=== PATIENT | male | born 1965 | race Two or more races ===

== ENCOUNTER 2019-03-20 09:49 | Inpatient (IN) | payer SELFPAY ==
[~2019-03-20] VITALS: Ht 160 cm; Wt 77.4 kg
--- NOTE | 2019-03-20 10:00 | NUR ---
ED Nurse Note: Patient brought in by ambulance from work c/o left upper chest pressure pain that started 1 hour prior to the arrival to ED. patient received 2 0.4 sublinguqal nitrogylcerin and 324 mg of aspirin en route, now patient reports 2/10 pain, does not radiate to anywhere patient is alert awake x4 ambulatory, breathing unlabored and even, speaking in full sentences. patient assisted into hospital gown, placed on a caridac monitor.
[2019-03-20 10:05] VITALS: BP 154/85
[2019-03-20 10:17] LABS: BASOPHILS % (AUTO) 1.4 % (0.0-2.0); EOSINOPHILS % (AUTO) 2.2 % (0.0-3.0); LYMPHOCYTES % (AUTO) 26.7 % (20.0-45.0); MEAN CORPUSCULAR VOLUME 90 FL (80-99); MONOCYTES % (AUTO) 5.7 % (1.0-10.0); NEUTROPHILS % (AUTO) 63.9 % (45.0-75.0); PLATELET COUNT 266 K/UL (150-450); RED BLOOD COUNT 3.88 M/UL (4.70-6.10); RED CELL DISTRIBUTION WIDTH 11.5 % (11.6-14.8); WHITE BLOOD COUNT 8.5 K/UL (4.8-10.8)
[2019-03-20] MEDS ORDERED: Morphine Sulfate 4mg/ml Inj (IV USE ONLY) IVP ONE (10:30)
--- NOTE | 2019-03-20 10:34 | Diagnostic Imaging Report ---
Indication: Dyspnea Comparison: None A single view chest radiograph was obtained. Findings: Cardiomediastinal appearance is within normal limits for age. The lungs are clear. Pulmonary vascularity is appropriate. The diaphragmatic contour is smooth and costophrenic angles are sharp. No pleural effusions are identified. The bones are unremarkable. Impression: No acute findings
[2019-03-20 10:49] LABS: APPEARANCE,URINE CLEAR; BILIRUBIN, URINE NEGATIVE (NEGATIVE); COLOR,URINE PALE YELLOW; GLUCOSE, URINE (UA) 4+ (NEGATIVE); KETONES,URINE NEGATIVE (NEGATIVE); LEUKOCYTE ESTERASE ,URINE NEGATIVE (NEGATIVE); NITRITE,URINE NEGATIVE (NEGATIVE); PH,URINE 5 (4.5-8.0); PROTEIN,URINE 4+ (NEGATIVE); UROBILINOGEN,URINE NORMAL MG/DL (0.0-1.0)
[2019-03-20 10:54] LABS: ANION GAP 11 mmol/L (5-15); BLOOD UREA NITROGEN 31 mg/dL (7-18); CARBON DIOXIDE 21 MMOL/L (21-32); CHLORIDE 107 MMOL/L (98-107); CREATININE 1.3 MG/DL (0.55-1.30); POTASSIUM 5.3 MMOL/L (3.5-5.1); SODIUM 139 MMOL/L (136-145)
[2019-03-20 11:07] LABS: ALANINE AMINOTRANSFERASE 28 U/L (12-78); ALBUMIN 3.1 G/DL (3.4-5.0); ALBUMIN/GLOBULIN RATIO 0.7 (1.0-2.7); ALKALINE PHOSPHATASE 76 U/L (46-116); ASPARTATE AMINO TRANSFERASE 21 U/L (15-37); BILIRUBIN,TOTAL 0.2 MG/DL (0.2-1.0); CREATINE KINASE 92 U/L (26-308)
[2019-03-20 11:23] VITALS: BP 149/79
--- NOTE | 2019-03-20 13:04 | Emergency Room Report ---
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 He states the pain was radiating down his left arm. He states that he also has pressure. He has brought in by EMS. He received aspirin and nitroglycerin prior to arrival. He denies recent illness. He denies cough or congestion. He does admit to vaping. He did stop smoking 5 days ago. He denies fever or chills. He states he has been under a lot of stress. He denies any previous episodes. He denies trauma. He has no other complaints. Allergies: Coded Allergies: No Known Allergies (Unverified , 03/20/19) Patient History Past Medical History: see triage record, DM, HTN Social History: Reports: smoking - Vaping, quit smoking 5 days ago.; Denies: alcohol use, drug use Reviewed Nursing Documentation: PMH: Agreed; PSxH: Agreed Nursing Documentation-PMH Past Medical History: No History, Except For Hx Hypertension: Yes Hx Diabetes: Yes Review of Systems All Other Systems: negative except mentioned in HPI Physical Exam Vital Signs Date Time Temp Pulse Resp B/P (MAP) Pulse Ox O2 Delivery O2 Flow Rate FiO2 03/20/19 09:53 97.9 82 18 191/103 (132) 99 Room Air Sp02 EP Interpretation: reviewed, normal General Appearance: no apparent distress, alert, GCS 15, non-toxic Head: normocephalic, atraumatic Eyes: bilateral eye normal inspection, bilateral eye PERRL ENT: hearing grossly normal, normal pharynx, no angioedema, normal voice Neck: full range of motion, supple/symm/no masses Respiratory: chest non-tender, lungs clear, normal breath sounds, no respiratory distress, no retraction, no accessory muscle use, speaking full sentences Cardiovascular #1: regular rate, rhythm, no edema Gastrointestinal: normal bowel sounds, non tender, soft, non-distended, no guarding, no rebound Rectal: deferred Musculoskeletal: back normal, gait/station normal, normal range of motion Neurologic: alert, oriented x3, responsive, motor strength/tone normal, sensory intact, speech normal Psychiatric: judgement/insight normal, memory normal, mood/affect normal, no suicidal/homicidal ideation Skin: no rash, normal color Medical Decision Making Diagnostic Impression: Primary Impression: NSTEMI (non-ST elevated myocardial infarction) ER Course This patient presented with chest pain. Initial work-up was to include EKG, troponin and chest x-ray. However, given the nature and severity of the pain I am concerned for an underlying unstable angina. I discussed this with the patient that I felt he should be admitted to the hospital and undergo further evaluation by cardiology and trending of his troponin. However, the patient declined admission to the hospital. The patient states that he does not have medical insurance and further needs to work as he is the only income for his family. I did educate the patient that this could be heart pain that he could have coronary artery blockage. I was able to talk this patient into staying for a repeat troponin. This troponin was elevated and trending up. After further discussion with this patient, he agreed to be admitted to the hospital. The patient meets criteria for NSTEMI. He was given Plavix and Lovenox and admitted for further evaluation by cardiology. Laboratory Tests Test 03/20/19 10:00 03/20/19 10:07 White Blood Count 8.5 K/UL (4.8-10.8) Red Blood Count 3.88 M/UL (4.70-6.10) L Hemoglobin 12.0 G/DL (14.2-18.0) L Hematocrit 35.0 % (42.0-52.0) L Mean Corpuscular Volume 90 FL (80-99) Mean Corpuscular Hemoglobin 30.8 PG (27.0-31.0) Mean Corpuscular Hemoglobin Concent 34.2 G/DL (32.0-36.0) Red Cell Distribution Width 11.5 % (11.6-14.8) L Platelet Count 266 K/UL (150-450) Mean Platelet Volume 6.7 FL (6.5-10.1) Neutrophils (%) (Auto) 63.9 % (45.0-75.0) Lymphocytes (%) (Auto) 26.7 % (20.0-45.0) Monocytes (%) (Auto) 5.7 % (1.0-10.0) Eosinophils (%) (Auto) 2.2 % (0.0-3.0) Basophils (%) (Auto) 1.4 % (0.0-2.0) Sodium Level 139 MMOL/L (136-145) Potassium Level 5.3 MMOL/L (3.5-5.1) H Chloride Level 107 MMOL/L (98-107) Carbon Dioxide Level 21 MMOL/L (21-32) Anion Gap 11 mmol/L (5-15) Blood Urea Nitrogen 31 mg/dL (7-18) H Creatinine 1.3 MG/DL (0.55-1.30) Estimate Glomerular Filtration Rate 58.0 mL/min (>60) Glucose Level 287 MG/DL (74-106) H Calcium Level 9.0 MG/DL (8.5-10.1) Total Bilirubin 0.2 MG/DL (0.2-1.0) Aspartate Amino Transferase (AST) 21 U/L (15-37) Alanine Aminotransferase (ALT) 28 U/L (12-78) Alkaline Phosphatase 76 U/L (46-116) Total Creatine Kinase 92 U/L (26-308) Creatine Kinase MB 1.0 NG/ML (0.0-3.6) Creatine Kinase MB Relative Index 1.0 Troponin I 0.000 ng/mL (0.000-0.056) Total Protein 7.3 G/DL (6.4-8.2) Albumin 3.1 G/DL (3.4-5.0) L Globulin 4.2 g/dL Albumin/Globulin Ratio 0.7 (1.0-2.7) L Lipase 209 U/L (73-393) Urine Color Pale yellow Urine Appearance Clear Urine pH 5 (4.5-8.0) Urine Specific [place] 1.015 (1.005-1.035) Urine Protein 4+ (NEGATIVE) H Urine Glucose (UA) 4+ (NEGATIVE) H Urine Ketones Negative (NEGATIVE) Urine Blood Negative (NEGATIVE) Urine Nitrite Negative (NEGATIVE) Urine Bilirubin Negative (NEGATIVE) Urine Urobilinogen Normal MG/DL (0.0-1.0) Urine Leukocyte Esterase Negative (NEGATIVE) Urine RBC 0 /HPF (0 - 0) Urine WBC 0-2 /HPF (0 - 0) Urine Squamous Epithelial Cells None /LPF (NONE/OCC) Urine Bacteria Occasional /HPF (NONE) Urine Opiates Screen Negative (NEGATIVE) Urine Barbiturates Screen Negative (NEGATIVE) Phencyclidine (PCP) Screen Negative (NEGATIVE) Urine Amphetamines Screen Negative (NEGATIVE) Urine Benzodiazepines Screen Negative (NEGATIVE) Urine Cocaine Screen Negative (NEGATIVE) Urine Marijuana (THC) Screen Negative (NEGATIVE) EKG Diagnostic Results Rate: normal Rhythm: NSR ST Segments: no acute changes Rhythm Strip Diag. Results EP Interpretation: yes Rate: 70's Rhythm: NSR, no PVC's, no ectopy Chest X-Ray Diagnostic Results Chest X-Ray Diagnostic Results : Chest X-Ray Ordered: Yes # of Views/Limited/Complete: 1 View Indication: Chest Pain EP Interpretation: Yes Interpretation: no consolidation, no effusion, no pneumothorax, no acute cardiopulmonary disease Impression: No acute disease Electronically Signed by: Cecilia Pereyra DO Last Vital Signs Date Time Temp Pulse Resp B/P (MAP) Pulse Ox O2 Delivery O2 Flow Rate FiO2 03/20/19 11:23 97.9 03/20/19 11:23 71 17 149/79 98 Room Air Disposition: ADMITTED INPATIENT Condition: Serious Referrals: NOT CHOSEN IPA/,REFERRING (PCP) Cecilia Pereyra DO Mar 20, 2019 13:04
--- NOTE | 2019-03-20 13:16 | NUR ---
ED Nurse Note: 2nd troponin sent to lab.
--- NOTE | 2019-03-20 14:00 | NUR ---
ED Nurse Note: notified Dr. Pererya about the troponin. Dr. Pereyra at bedside explaining to the patient.
[2019-03-20 14:14] VITALS: BP 142/82
[2019-03-20] MEDS ORDERED: Enoxaparin 80mg Inj SUBQ ONE (14:15)
[2019-03-20] MEDS ORDERED: METFORMIN HCL500 M1 ORAL (14:37)
[2019-03-20] MEDS ORDERED: GLIPIZIDE5 MG ORAL (14:37)
--- NOTE | 2019-03-20 14:37 | NUR ---
HAND-OFF: Report given to Estefanía TRINIDAD. endorsed all plan of care to Estefanía TRINIDAD.
--- NOTE | 2019-03-20 15:00 | NUR ---
ED Nurse Note: patient transferred to 2E with all of his belongings, with ACLS protocol. endorsed all plan of care to Estefanía TRINIDAD
--- NOTE | 2019-03-20 15:30 | NUR ---
NURSE NOTES: Pt. came on the floor via gurney from ER. Was able to ambulate safely to bed. AOx4. Denies pain at this time. In RA. IV on L hand flushed, SL. Belongings checked with Pt., signed and filed. manager monitoring applied. Oriented Pt. to room and visiting hours. Bed on lowest position, side rails upx2, brakes engaged, call light within easy reach.
--- NOTE | 2019-03-20 15:38 | NUR ---
NURSE NOTES: Called and left a message regarding admission orders to Dr. Kirkland. Waiting for a call back.
--- NOTE | 2019-03-20 16:27 | NUR ---
NURSE NOTES: 2nd attempt. Left a message to Dr. Kirkland regarding admission orders. Waiting for a call back.
[2019-03-20 16:30] VITALS: BP 160/86
[2019-03-20] MEDS ORDERED: HydrALAZINE 25mg tab ORAL PRN (17:00)
[2019-03-20] MEDS: Docusate 100mg cap ORAL SCH (17:48)
[2019-03-20] MEDS: Nitroglycerin Patch 0.4mg TDERMAL SCH (17:48)
[2019-03-20] MEDS: metFORMIN 500mg tab ORAL SCH (17:51)
[2019-03-20] MEDS: NovoLOG Insulin Flexpen SUBQ SCH (18:52)
--- NOTE | 2019-03-20 19:50 | NUR ---
HAND-OFF: Report given to AMOS Hercules. Pt. in stable condition. Plan of care endorsed.
--- NOTE | 2019-03-20 19:51 | NUR ---
NURSE NOTES: Received pt from AMOS Watson. Pt is awake and resting in bed in no acute distress. IV fluids running via iv site. Bed locked in lowest position, bed alarm on, call light within reach. will continue with plan of care.
[2019-03-20 20:00] VITALS: BP 147/73
--- NOTE | 2019-03-20 20:31 | Cardiology Progress Note ---
Assessment/Plan Assessment/Plan The patient is seen and examined, full consult note is dictated. Objective Last 24 Hour Vital Signs Date Time Temp Pulse Resp B/P (MAP) Pulse Ox O2 Delivery O2 Flow Rate FiO2 03/20/19 17:51 75 160/85 03/20/19 17:48 160/85 03/20/19 16:30 97.6 79 16 160/86 (110) 99 03/20/19 16:00 79 03/20/19 15:45 Room Air 03/20/19 15:00 97.9 73 12 142/82 100 Room Air 03/20/19 14:14 97.9 73 12 142/82 100 Room Air 03/20/19 11:23 97.9 03/20/19 11:23 97.9 71 17 149/79 98 Room Air 03/20/19 10:05 82 18 Room Air 03/20/19 10:05 97.9 75 20 154/85 99 Room Air 03/20/19 09:53 97.9 82 18 191/103 (132) 99 Room Air Laboratory Tests Test 03/20/19 10:00 03/20/19 10:07 03/20/19 13:10 White Blood Count 8.5 K/UL (4.8-10.8) Red Blood Count 3.88 M/UL (4.70-6.10) L Hemoglobin 12.0 G/DL (14.2-18.0) L Hematocrit 35.0 % (42.0-52.0) L Mean Corpuscular Volume 90 FL (80-99) Mean Corpuscular Hemoglobin 30.8 PG (27.0-31.0) Mean Corpuscular Hemoglobin Concent 34.2 G/DL (32.0-36.0) Red Cell Distribution Width 11.5 % (11.6-14.8) L Platelet Count 266 K/UL (150-450) Mean Platelet Volume 6.7 FL (6.5-10.1) Neutrophils (%) (Auto) 63.9 % (45.0-75.0) Lymphocytes (%) (Auto) 26.7 % (20.0-45.0) Monocytes (%) (Auto) 5.7 % (1.0-10.0) Eosinophils (%) (Auto) 2.2 % (0.0-3.0) Basophils (%) (Auto) 1.4 % (0.0-2.0) Sodium Level 139 MMOL/L (136-145) Potassium Level 5.3 MMOL/L (3.5-5.1) H Chloride Level 107 MMOL/L (98-107) Carbon Dioxide Level 21 MMOL/L (21-32) Anion Gap 11 mmol/L (5-15) Blood Urea Nitrogen 31 mg/dL (7-18) H Creatinine 1.3 MG/DL (0.55-1.30) Estimat Glomerular Filtration Rate 58.0 mL/min (>60) Glucose Level 287 MG/DL (74-106) H Calcium Level 9.0 MG/DL (8.5-10.1) Total Bilirubin 0.2 MG/DL (0.2-1.0) Aspartate Amino Transf (AST/SGOT) 21 U/L (15-37) Alanine Aminotransferase (ALT/SGPT) 28 U/L (12-78) Alkaline Phosphatase 76 U/L (46-116) Total Creatine Kinase 92 U/L (26-308) Creatine Kinase MB 1.0 NG/ML (0.0-3.6) Creatine Kinase MB Relative Index 1.0 Troponin I 0.000 ng/mL (0.000-0.056) 0.286 ng/mL (0.000-0.056) Total Protein 7.3 G/DL (6.4-8.2) Albumin 3.1 G/DL (3.4-5.0) L Globulin 4.2 g/dL Albumin/Globulin Ratio 0.7 (1.0-2.7) L Lipase 209 U/L (73-393) Urine Color Pale yellow Urine Appearance Clear Urine pH 5 (4.5-8.0) Urine Specific [place] 1.015 (1.005-1.035) Urine Protein 4+ (NEGATIVE) H Urine Glucose (UA) 4+ (NEGATIVE) H Urine Ketones Negative (NEGATIVE) Urine Blood Negative (NEGATIVE) Urine Nitrite Negative (NEGATIVE) Urine Bilirubin Negative (NEGATIVE) Urine Urobilinogen Normal MG/DL (0.0-1.0) Urine Leukocyte Esterase Negative (NEGATIVE) Urine RBC 0 /HPF (0 - 0) Urine WBC 0-2 /HPF (0 - 0) Urine Squamous Epithelial Cells None /LPF (NONE/OCC) Urine Bacteria Occasional /HPF (NONE) Urine Opiates Screen Negative (NEGATIVE) Urine Barbiturates Screen Negative (NEGATIVE) Phencyclidine (PCP) Screen Negative (NEGATIVE) Urine Amphetamines Screen Negative (NEGATIVE) Urine Benzodiazepines Screen Negative (NEGATIVE) Urine Cocaine Screen Negative (NEGATIVE) Urine Marijuana (THC) Screen Negative (NEGATIVE) Yury Villavicencio MD Mar 20, 2019 20:31
[2019-03-20] MEDS ORDERED: Atorvastatin 20mg tab ORAL SCH (21:00)
[2019-03-20] MEDS ORDERED: Levemir Flexpen SUBQ SCH (21:00)
--- NOTE | 2019-03-20 21:30 | Consultation ---
DATE OF CONSULTATION: 03/20/2019 CARDIOLOGY CONSULTATION CONSULTING PHYSICIAN: Yury Villavicencio M.D. REFERRING PHYSICIAN: Callie Kirkland M.D. REASON FOR CONSULTATION: Chest pain. 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 He states that he has been stressed out lately. His coronary artery disease risk factors including diabetes mellitus and tobacco use. Denies any prior history of hypertension. He was given lisinopril for proteinuria by his primary care physician. At the time of arrival to the hospital, blood pressure is 191/103 mmHg and heart rate was 82. A 12-lead electrocardiogram revealed sinus rhythm at a rate of 75 with left ventricular hypertrophy, repolarization abnormalities, normal QT interval but no acute ischemic changes. Initial troponin I level was 0 however the second troponin I level went up to 0.2. The patient was admitted to telemetry for further evaluation and management. Cardiology consultation was made at request Dr. Kirkland for evaluation of possible acute coronary syndrome. PAST MEDICAL HISTORY: 1. Diabetes mellitus. 2. Proteinuria. 3. Tobacco use. ALLERGIES: No known drug allergies. SOCIAL HISTORY: Smoking cigarettes, quit about five days ago currently Denies any alcohol or illicit drug use. PAST SURGICAL HISTORY: None. FAMILY HISTORY: Denies any premature coronary artery disease in first-degree relatives. REVIEW OF SYSTEMS: A 12-system review done essentially negative except what was mentioned in the history of present illness. MEDICATIONS: List of medication lisinopril 5 mg p.o. daily, glipizide 5 mg p.o. twice daily, metformin 500 mg p.o. twice daily. PHYSICAL EXAMINATION: VITAL SIGNS: Blood pressure 191/103, respirations 18, pulse of 82, temperature 97.9 degrees Fahrenheit, and O2 saturation 99% on room air. GENERAL: The patient is a very delightful 54-year-old gentleman, in no apparent respiratory distress. Alert and oriented x4. HEENT: Atraumatic and normocephalic. Anicteric. Pupils are equal, round, and reactive to light and accommodation. Extraocular muscles intact. NECK: JVP less than 5 cm. No carotid bruit. Carotid upstroke is 2+ bilaterally. CVS: Normal S1, S2. Regular rate and rhythm. No murmurs, gallops, or rubs. PMI is at fourth intercostal space at the midclavicular. LUNGS: Clear to auscultation bilaterally. ABDOMEN: Soft, nontender, and nondistended. No hepatosplenomegaly. Positive bowel sounds. EXTREMITIES: No evidence of edema, clubbing, cyanosis. LABORATORY FINDINGS: Sodium 139, potassium is 5.3, chloride 107, bicarbonate 21, BUN 31, creatinine 1.3, glucose 287, calcium is 9.0. Troponin-I 0 and 0.286 consecutively. CK-MB was 1.0. Toxicology negative. Hematology showed WBC 8.5, hemoglobin of 12, hematocrit 35, and platelet count is 266. Chest x-ray showed no acute cardiopulmonary disease. ASSESSMENT AND PLAN: The patient is an very unfortunate 54-year-old gentleman, seen in Cardiology consultation. 1. Atypical chest pain in view of CAD risk factors of diabetes mellitus, hypertension, tobacco use, require to rule out obstructive CAD as potential etiology for the chest pain. In fact, second troponin I was slightly elevated. There is no ischemic changes on 12-lead electrocardiogram. The patient will be safe to proceed with regadenoson nuclear revision study to rule out obstructive CAD. I would like to start the patient on atorvastatin 40 mg p.o. at bedtime, aspirin 81 mg p.o. daily,. Management of hypertension with combination of amlodipine and metoprolol. I would like to obtain 2D echocardiography for assessment of LV systolic and diastolic function. 2. History of diabetes mellitus, Endocrine consult. 3. History of proteinuria. Continue on lisinopril. 4. Hypertensive crisis, might be culprit for chest pain. We will continue with amlodipine and beta-tray at this time. I would like to thank, Dr. Kirkland, for the courtesy of this consultation. Yury Villavicencio M.D. DR: Blaire JOB#: [id number] CC:
[2019-03-20] MEDS: Metoprolol Tartrate 50mg tab ORAL SCH (22:47)
[2019-03-20] MEDS: Aspirin EC 81mg tab ORAL SCH (22:50)
[2019-03-21] VITALS: BP 110/68
[2019-03-21] MEDS ORDERED: Heparin 5000 units/ml inj IV ONE (00:15)
[2019-03-21 00:54] LABS: BASOPHILS % (AUTO) 0.9 % (0.0-2.0); EOSINOPHILS % (AUTO) 2.7 % (0.0-3.0); HEMOGLOBIN 10.2 G/DL (14.2-18.0); LYMPHOCYTES % (AUTO) 31.6 % (20.0-45.0); MEAN CORPUSCULAR VOLUME 89 FL (80-99); MONOCYTES % (AUTO) 6.9 % (1.0-10.0); PLATELET COUNT 237 K/UL (150-450); RED BLOOD COUNT 3.38 M/UL (4.70-6.10); RED CELL DISTRIBUTION WIDTH 12.4 % (11.6-14.8); WHITE BLOOD COUNT 9.3 K/UL (4.8-10.8)
[2019-03-21] MEDS: Heparin 25,000u/D5W 500ml 500 ML IV SCH (01:47)
[2019-03-21 04:00] VITALS: BP 132/75
[2019-03-21] MEDS: Nateglinide 60mg tab ORAL SCH ×3 (06:25→17:46)
[2019-03-21] MEDS: metFORMIN 500mg tab ORAL SCH (06:25)
[2019-03-21] MEDS: NovoLOG Insulin Flexpen SUBQ SCH ×3 (06:26→17:51)
--- NOTE | 2019-03-21 07:15 | NUR ---
NURSE NOTES: Report received from AMOS Brewster. Pt. AOx4. IV running Heparin at 12u/kg/hr at 18mlL/hr. Site intact. Education given to patient for S/S to communicate with Nurse. 1/2NS @50 running on separate IV. Pt. in RA. Denies pain and SOB. Bed on lowest position, side rails upx2, brakes engaged, call light within easy reach.
--- NOTE | 2019-03-21 07:32 | NUR ---
HAND-OFF: Report given to AMOS Watson. Endorsed plan of care.
[2019-03-21 08:00] VITALS: BP 133/82
[2019-03-21 08:06] LABS: BASOPHILS % (AUTO) 0.8 % (0.0-2.0); EOSINOPHILS % (AUTO) 2.4 % (0.0-3.0); HEMATOCRIT 34.9 % (42.0-52.0); HEMOGLOBIN 11.6 G/DL (14.2-18.0); LYMPHOCYTES % (AUTO) 25.7 % (20.0-45.0); MEAN CORPUSCULAR VOLUME 90 FL (80-99); MONOCYTES % (AUTO) 5.6 % (1.0-10.0); NEUTROPHILS % (AUTO) 65.4 % (45.0-75.0); PLATELET COUNT 268 K/UL (150-450); RED BLOOD COUNT 3.87 M/UL (4.70-6.10); RED CELL DISTRIBUTION WIDTH 12.7 % (11.6-14.8); WHITE BLOOD COUNT 9.3 K/UL (4.8-10.8)
--- NOTE | 2019-03-21 08:10 | NUR ---
NURSE NOTES: Lab confirmed no rate change on Heparin drip.
[2019-03-21 08:39] LABS: GAMMA GLUTAMYL TRANSPEPTIDASE 18 U/L (5-85); PHOSPHORUS 2.5 MG/DL (2.5-4.9)
[2019-03-21 08:43] LABS: ALANINE AMINOTRANSFERASE 28 U/L (12-78); ALBUMIN 2.8 G/DL (3.4-5.0); ALBUMIN/GLOBULIN RATIO 0.7 (1.0-2.7); ALKALINE PHOSPHATASE 68 U/L (46-116); ANION GAP 6 mmol/L (5-15); ASPARTATE AMINO TRANSFERASE 28 U/L (15-37); BILIRUBIN,TOTAL 0.2 MG/DL (0.2-1.0); BLOOD UREA NITROGEN 25 mg/dL (7-18); CALCIUM 8.6 MG/DL (8.5-10.1); CARBON DIOXIDE 26 MMOL/L (21-32); CHLORIDE 109 MMOL/L (98-107); CHOLESTEROL 255 MG/DL (< 200); CREATININE 1.3 MG/DL (0.55-1.30); FERRITIN 105 NG/ML (8-388); HDL CHOLESTEROL 35 MG/DL (40-60); POTASSIUM 4.7 MMOL/L (3.5-5.1); SODIUM 141 MMOL/L (136-145); TRIGLYCERIDES 184 MG/DL (30-150)
[2019-03-21 08:48] LABS: % IRON SATURATION 35 % (15-50); IRON 73 ug/dL (50-175); TOTAL IRON BINDING CAPACITY 209 ug/dL (250-450)
--- NOTE | 2019-03-21 08:52 | Consultation ---
History of Present Illness General Date patient seen: Mar 21, 2019 Present Illness Allergies: Coded Allergies: No Known Allergies (Unverified , 03/20/19) Medication History Scheduled Glipizide* (Glipizide*), 5 MG ORAL BIDAC, (Reported) Metformin Hcl* (Metformin Hcl*), 500 MG ORAL TWICE A DAY, (Reported) Patient History Healthcare decision maker Resuscitation status Full Code Advanced Directive on File Physical Exam Last 24 Hour Vital Signs Date Time Temp Pulse Resp B/P (MAP) Pulse Ox O2 Delivery O2 Flow Rate FiO2 03/21/19 04:00 73 03/21/19 04:00 98.0 73 21 132/75 (94) 99 03/21/19 00:00 69 03/21/19 00:00 97.5 69 21 110/68 (82) 100 03/20/19 22:47 78 123/70 03/20/19 21:00 Room Air 03/20/19 20:00 97.6 99 19 147/73 (97) 99 03/20/19 20:00 99 03/20/19 17:51 75 160/85 03/20/19 17:48 160/85 03/20/19 16:30 97.6 79 16 160/86 (110) 99 03/20/19 16:00 79 03/20/19 15:45 Room Air 03/20/19 15:00 97.9 73 12 142/82 100 Room Air 03/20/19 14:14 97.9 73 12 142/82 100 Room Air 03/20/19 11:23 97.9 03/20/19 11:23 97.9 71 17 149/79 98 Room Air 03/20/19 10:05 82 18 Room Air 03/20/19 10:05 97.9 75 20 154/85 99 Room Air 03/20/19 09:53 97.9 82 18 191/103 (132) 99 Room Air Intake and Output 03/20/19 03/21/19 19:00 07:00 Intake Total 120 ml 210.90 ml Output Total 350 ml Balance 120 ml -139.10 ml Intake Oral 120 ml 120 ml IV Total 90.90 ml Output Urine Total 350 ml # Voids 1 2 Laboratory Tests Test 03/20/19 10:00 03/20/19 10:07 03/20/19 13:10 03/20/19 21:00 White Blood Count 8.5 K/UL (4.8-10.8) Red Blood Count 3.88 M/UL (4.70-6.10) L Hemoglobin 12.0 G/DL (14.2-18.0) L Hematocrit 35.0 % (42.0-52.0) L Mean Corpuscular Volume 90 FL (80-99) Mean Corpuscular Hemoglobin 30.8 PG (27.0-31.0) Mean Corpuscular Hemoglobin Concent 34.2 G/DL (32.0-36.0) Red Cell Distribution Width 11.5 % (11.6-14.8) L Platelet Count 266 K/UL (150-450) Mean Platelet Volume 6.7 FL (6.5-10.1) Neutrophils (%) (Auto) 63.9 % (45.0-75.0) Lymphocytes (%) (Auto) 26.7 % (20.0-45.0) Monocytes (%) (Auto) 5.7 % (1.0-10.0) Eosinophils (%) (Auto) 2.2 % (0.0-3.0) Basophils (%) (Auto) 1.4 % (0.0-2.0) Sodium Level 139 MMOL/L (136-145) Potassium Level 5.3 MMOL/L (3.5-5.1) H Chloride Level 107 MMOL/L (98-107) Carbon Dioxide Level 21 MMOL/L (21-32) Anion Gap 11 mmol/L (5-15) Blood Urea Nitrogen 31 mg/dL (7-18) H Creatinine 1.3 MG/DL (0.55-1.30) Estimat Glomerular Filtration Rate 58.0 mL/min (>60) Glucose Level 287 MG/DL (74-106) H Calcium Level 9.0 MG/DL (8.5-10.1) Total Bilirubin 0.2 MG/DL (0.2-1.0) Aspartate Amino Transf (AST/SGOT) 21 U/L (15-37) Alanine Aminotransferase (ALT/SGPT) 28 U/L (12-78) Alkaline Phosphatase 76 U/L (46-116) Total Creatine Kinase 92 U/L (26-308) Creatine Kinase MB 1.0 NG/ML (0.0-3.6) Creatine Kinase MB Relative Index 1.0 Troponin I 0.000 ng/mL (0.000-0.056) 0.286 ng/mL (0.000-0.056) 3.444 ng/mL (0.000-0.056) Total Protein 7.3 G/DL (6.4-8.2) Albumin 3.1 G/DL (3.4-5.0) L Globulin 4.2 g/dL Albumin/Globulin Ratio 0.7 (1.0-2.7) L Lipase 209 U/L (73-393) Urine Color Pale yellow Urine Appearance Clear Urine pH 5 (4.5-8.0) Urine Specific [place] 1.015 (1.005-1.035) Urine Protein 4+ (NEGATIVE) H Urine Glucose (UA) 4+ (NEGATIVE) H Urine Ketones Negative (NEGATIVE) Urine Blood Negative (NEGATIVE) Urine Nitrite Negative (NEGATIVE) Urine Bilirubin Negative (NEGATIVE) Urine Urobilinogen Normal MG/DL (0.0-1.0) Urine Leukocyte Esterase Negative (NEGATIVE) Urine RBC 0 /HPF (0 - 0) Urine WBC 0-2 /HPF (0 - 0) Urine Squamous Epithelial Cells None /LPF (NONE/OCC) Urine Bacteria Occasional /HPF (NONE) Urine Opiates Screen Negative (NEGATIVE) Urine Barbiturates Screen Negative (NEGATIVE) Phencyclidine (PCP) Screen Negative (NEGATIVE) Urine Amphetamines Screen Negative (NEGATIVE) Urine Benzodiazepines Screen Negative (NEGATIVE) Urine Cocaine Screen Negative (NEGATIVE) Urine Marijuana (THC) Screen Negative (NEGATIVE) Test 03/21/19 00:30 03/21/19 07:50 White Blood Count 9.3 K/UL (4.8-10.8) 9.3 K/UL (4.8-10.8) Red Blood Count 3.38 M/UL (4.70-6.10) L 3.87 M/UL (4.70-6.10) L Hemoglobin 10.2 G/DL (14.2-18.0) L 11.6 G/DL (14.2-18.0) L Hematocrit 30.0 % (42.0-52.0) L 34.9 % (42.0-52.0) L Mean Corpuscular Volume 89 FL (80-99) 90 FL (80-99) Mean Corpuscular Hemoglobin 30.2 PG (27.0-31.0) 29.9 PG (27.0-31.0) Mean Corpuscular Hemoglobin Concent 34.1 G/DL (32.0-36.0) 33.2 G/DL (32.0-36.0) Red Cell Distribution Width 12.4 % (11.6-14.8) 12.7 % (11.6-14.8) Platelet Count 237 K/UL (150-450) 268 K/UL (150-450) Mean Platelet Volume 5.7 FL (6.5-10.1) L 5.8 FL (6.5-10.1) L Neutrophils (%) (Auto) 58.0 % (45.0-75.0) 65.4 % (45.0-75.0) Lymphocytes (%) (Auto) 31.6 % (20.0-45.0) 25.7 % (20.0-45.0) Monocytes (%) (Auto) 6.9 % (1.0-10.0) 5.6 % (1.0-10.0) Eosinophils (%) (Auto) 2.7 % (0.0-3.0) 2.4 % (0.0-3.0) Basophils (%) (Auto) 0.9 % (0.0-2.0) 0.8 % (0.0-2.0) Activated Partial Thromboplast Time 34 SEC (23-33) H 75 SEC (23-33) H Sodium Level 141 MMOL/L (136-145) Potassium Level 4.7 MMOL/L (3.5-5.1) Chloride Level 109 MMOL/L (98-107) H Carbon Dioxide Level 26 MMOL/L (21-32) Anion Gap 6 mmol/L (5-15) Blood Urea Nitrogen 25 mg/dL (7-18) H Creatinine 1.3 MG/DL (0.55-1.30) Estimat Glomerular Filtration Rate 58.0 mL/min (>60) Glucose Level 166 MG/DL (74-106) #H Hemoglobin A1c Pending Uric Acid 6.0 MG/DL (2.6-7.2) Calcium Level 8.6 MG/DL (8.5-10.1) Phosphorus Level 2.5 MG/DL (2.5-4.9) Magnesium Level 1.7 MG/DL (1.8-2.4) L Iron Level Pending Unsaturated Iron Binding Pending Ferritin 105 NG/ML (8-388) Total Bilirubin 0.2 MG/DL (0.2-1.0) Gamma Glutamyl Transpeptidase 18 U/L (5-85) Aspartate Amino Transf (AST/SGOT) 28 U/L (15-37) Alanine Aminotransferase (ALT/SGPT) 28 U/L (12-78) Alkaline Phosphatase 68 U/L (46-116) Troponin I 1.766 ng/mL (0.000-0.056) C-Reactive Protein, Quantitative 0.5 mg/dL (0.00-0.90) Pro-B-Type Natriuretic Peptide 266 pg/mL (0-125) H Total Protein 6.6 G/DL (6.4-8.2) Albumin 2.8 G/DL (3.4-5.0) L Globulin 3.8 g/dL Albumin/Globulin Ratio 0.7 (1.0-2.7) L Triglycerides Level 184 MG/DL (30-150) H Cholesterol Level 255 MG/DL (< 200) H LDL Cholesterol 195 mg/dL (<100) H HDL Cholesterol 35 MG/DL (40-60) L Cholesterol/HDL Ratio 7.3 (3.3-4.4) H Vitamin B12 Level Pending Folate Pending Thyroid Stimulating Hormone (TSH) 1.592 uiU/mL (0.358-3.740) Height (Feet): 5 Height (Inches): 3.00 Weight (Pounds): 170 Medications Current Medications Medications (Trade) Dose Ordered Sig/Marilou Route PRN Reason Start Time Stop Time Status Last Admin Dose Admin Acetaminophen (Tylenol) 650 mg Q4H PRN ORAL Mild Pain/Temp > 100.5 03/20/19 17:00 04/19/19 16:59 Amlodipine Besylate (Norvasc) 5 mg DAILY ORAL 03/21/19 09:00 04/20/19 08:59 Aspirin (Ecotrin) 81 mg DAILY ORAL 03/20/19 20:45 04/19/19 20:44 03/20/19 22:50 Atorvastatin Calcium (Lipitor) 80 mg BEDTIME ORAL 03/21/19 21:00 10/17/19 20:59 Dextrose (Dextrose 50%) 25 ml Q30M PRN IV Hypoglycemia 03/20/19 17:45 04/19/19 17:44 Dextrose (Dextrose 50%) 50 ml Q30M PRN IV Hypoglycemia 03/20/19 17:45 04/19/19 17:44 Docusate Sodium (Colace) 100 mg THREE TIMES A DAY ORAL 03/20/19 18:00 04/19/19 17:59 03/20/19 17:48 Heparin Sodium/ Dextrose 500 ml @ 18.18 mls/ hr ADJUST PER PROTOCOL IV 03/21/19 00:15 04/20/19 00:14 03/21/19 01:47 Hydralazine HCl (Apresoline) 25 mg Q4H PRN ORAL bp over 160 syst 03/20/19 17:00 04/19/19 16:59 Insulin Aspart (NovoLOG) 6 units NOVOTIAC SUBQ 03/20/19 17:45 04/19/19 17:44 03/21/19 06:26 Insulin Detemir (Levemir) 24 units BEDTIME SUBQ 03/21/19 21:00 04/19/19 20:59 Metoprolol Tartrate (Lopressor) 50 mg Q12HR ORAL 03/20/19 21:00 04/19/19 20:59 03/20/19 22:47 Nateglinide (Starlix) 60 mg TIAC ORAL 03/21/19 06:30 04/20/19 06:29 03/21/19 06:25 Nitroglycerin (Ntg) 1 patch Q24H TDERMAL 03/20/19 17:00 04/19/19 16:59 03/20/19 17:48 Pantoprazole (Protonix) 40 mg EVERY 12 HOURS ORAL 03/20/19 21:00 04/19/19 20:59 03/20/19 22:47 Sodium Chloride 1,000 ml @ 50 mls/hr Q20H IV 03/20/19 17:00 04/19/19 16:59 03/20/19 17:52 Assessment/Plan Assessment/Plan: (1) Chest pain (2) ACS seen dictated Corby Romo Mar 21, 2019 08:52
[2019-03-21] MEDS: Aspirin EC 81mg tab ORAL SCH (09:00)
[2019-03-21] MEDS ORDERED: Lexiscan 0.4mg/5ml syringe IV PRN (09:00)
[2019-03-21] MEDS: Metoprolol Tartrate 50mg tab ORAL SCH ×2 (09:01→22:33)
[2019-03-21] MEDS: Docusate 100mg cap ORAL SCH ×3 (09:01→17:46)
--- NOTE | 2019-03-21 10:55 | Consultation ---
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 He states the pain was radiating down his left arm. He states that he also has pressure. He has brought in by EMS. He received aspirin and nitroglycerin prior to arrival. He denies recent illness. He denies cough or congestion. He does admit to vaping. He did stop smoking 5 days ago. He denies fever or chills. He states he has been under a lot of stress. He denies any previous episodes. He denies trauma. He has no other complaints. No Known Allergies (Unverified , 03/20/19) Past Medical History: No History, Except For Hx Hypertension: Yes Hx Diabetes: Yes Assessment/Plan NSTEMI- Multiple risk factors Rising Troponin I DM HTN Mild Anemia High Cholestrol borderline low B12 Heparin IV beta blockers , ASA , Nitrates 2D Echo Lipitor BS and BP control per orders Gurpreet Sevilla MD Mar 21, 2019 10:55
[2019-03-21] MEDS ORDERED: Atorvastatin 80mg tab ORAL SCH ×2 (11:00→21:00)
[2019-03-21] MEDS ORDERED: Vitamin B12 1000mcg/ml Inj SUBQ SCH (11:00)
[2019-03-21 12:00] VITALS: BP 128/73
--- NOTE | 2019-03-21 15:45 | Consultation ---
DATE OF CONSULTATION: 03/21/2019 ENDOCRINOLOGY CONSULTATION CONSULTING PHYSICIAN: Long Mckeon M.D. REFERRING PHYSICIAN: Callie Kirkland M.D. REASON FOR CONSULTATION: Diabetes management. HISTORY OF PRESENT ILLNESS: This is a 54-year-old male with history of diabetes, on metformin and glipizide as an outpatient, presented to the hospital with hypertensive urgency and chest pain. Evaluated by fountain roller assembler. I was called to manage diabetes. PAST MEDICAL HISTORY: Hypertension, diabetes, proteinuria. SOCIAL HISTORY: The patient smokes. No alcohol or drug use. ALLERGIES TO MEDICATIONS: None. PAST SURGICAL HISTORY: None. FAMILY HISTORY: Diabetes, otherwise noncontributory. REVIEW OF SYSTEMS: A 12-point review of systems was performed and the pertinent positives and negatives are mentioned in history of present illness. MEDICATIONS: Reviewed and reconciled. PHYSICAL EXAMINATION: VITAL SIGNS: Blood pressure 190/100, pulse of 80, temperature 98, respiratory rate 18. HEENT: Pupils are reactive to light. Sclerae anicteric. NECK: No JVD or lymphadenopathy. LUNGS: Clear. HEART: Regular rate and rhythm. ABDOMEN: Positive bowel sounds. EXTREMITIES: No clubbing, cyanosis, or edema. LABORATORY VALUES: Sodium 139, potassium 5.3, chloride 102, bicarb 21, BUN 31, creatinine 1.3. DIAGNOSES: 1. Chest pain, rule out acute coronary syndrome. 2. Diabetes, out of control. PLAN: 1. Start Levemir 24 units at bedtime. 2. Start NovoLog 6 units before each meal. 3. Start Starlix 60 mg before meals t.i.d. 4. Continue metformin. 5. NovoLog sliding scale before meals and at bedtime. 6. Check hemoglobin A1c. 7. Further adjustment according to blood glucose value. Thank you, Dr. Kirkland, for the courtesy of this consultation. Long Mckeon M.D. DR: GWYN JOB#: [id number] CC:
[2019-03-21 16:00] VITALS: BP 127/64
--- NOTE | 2019-03-21 16:50 | NUR ---
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
--- NOTE | 2019-03-21 17:20 | Cardiology Report ---
APPROVED REPORT EXAM: Two-dimensional and M-mode echocardiogram with Doppler and color Doppler. INDICATION Chest Pain M-Mode DIMENSIONS IVSd1.1 (0.7-1.1cm)Left Atrium (MM)3.6 (1.6-4.0cm) LVDd3.8 (3.5-5.6cm)Aortic Root2.9 (2.0-3.7cm) PWd1.1 (0.7-1.1cm)Aortic Cusp Exc.2.0 (1.5-2.0cm) IVSs1.5 cm LVDs2.4 (2.5-4.0cm) PWs1.7 cm Normal left ventricular chamber size, systolic function and wall motion. Left ventricular ejection fraction estimated to be 60-65 %. No evidence of left ventricular hypertrophy . No evidence of pericardial effusion. Left atrial size at upper limits of normal. Right cardiac chamber sizes are within normal limits. Focal aortic valve sclerosis with adequate cusp excursion. Thickened mitral valve leaflets with normal excursion. Mitral annulus and aortic root calcification. Normal pulmonic valve structure. Normal tricuspid valve structure. IVC at normal size with physiologic collapse. A color flow and spectral Doppler study was performed and revealed: No aortic regurgitation.. Mild mitral regurgitation. Mitral inflow indicates normal left ventricular diastolic function. Mild tricuspid regurgitation. Tricuspid systolic velocities suggests peak right ventricular systolic pressure of 24 mmHg.
[2019-03-21] MEDS: Nitroglycerin Patch 0.4mg TDERMAL SCH (17:47)
--- NOTE | 2019-03-21 19:00 | History and Physical Report ---
DATE OF ADMISSION: 03/20/2019 HISTORY OF PRESENT ILLNESS: The patient is admitted for non-STEMI. The patient's troponin is trending up. The patient is started on IV heparin by Dr. Villavicencio. The patient also has elevated blood sugar and is diabetic. The patient complains of chest pain x1 day that was relieved with morphine. The patient is also diabetic. Denies shortness of breath. Denies cough. Denies orthopnea. Denies diaphoresis. Denies heartburn. PAST MEDICAL HISTORY: Significant for NIDDM, diabetic proteinuria/nephropathy, hyperlipidemia. PAST SURGICAL HISTORY: Appendectomy. MEDICATIONS: Lisinopril, glipizide, and metformin. FAMILY HISTORY: Does have history of diabetes, hypertension. SOCIAL HISTORY: History of smoking. History of drug abuse. No history of alcohol abuse. ALLERGIES: No known allergies. REVIEW OF SYSTEMS: HEENT: Denies headaches. RESPIRATORY: Denies shortness of breath. Denies cough. CARDIOVASCULAR: Does have chest pain x1 day that was relieved by morphine. No radiation to the forearm. No other associated symptoms. GASTROINTESTINAL: Denies heartburn. Denies nausea, vomiting, diarrhea. EXTREMITIES: Denies pain in lower extremities. CENTRAL NERVOUS SYSTEM: Denies change in vision or speech pattern. PHYSICAL EXAMINATION: VITAL SIGNS: Temperature is 97.5, pulse is 69, blood pressure 110/68. HEENT: PERRLA. NECK: Supple. No lymphadenopathy. CHEST: Clear to auscultation. CARDIOVASCULAR: Regular rate and rhythm. No murmurs or extra sounds. GASTROINTESTINAL: Soft, nontender, nondistended. No organomegaly. EXTREMITIES: No edema. Moves all four extremities. NEUROLOGIC: Sensory intact to light touch. Reflexes equal on both sides. Moves all four extremities. EKG shows non-STEMI. LABORATORY DATA: WBC of 8.5, hemoglobin 12, platelets of 266. Sodium 141, potassium 4.7, glucose of 166, creatinine 1.3, BUN of 25. Magnesium 1.7. Troponin was trending up. Initial one was 0.286. The patient also has high cholesterol. ASSESSMENT AND PLAN: Non-STEMI, ruled in. The patient is started on IV heparin drip per Dr. Villavicencio. The patient does have risk factors for [place]. We will trend troponin. Stress test versus echocardiogram decision will be made by Dr. Villavicencio, sprayer operator on the case. I have also consulted Dr. Mckeon for NIDDM, Dr. Sevilla as well for proteinuria. Callie Kirkland M.D. DR: HOANG JOB#: [id number] CC:
--- NOTE | 2019-03-21 19:10 | NUR ---
NURSE NOTES: Heparin rate verified with night RN.
--- NOTE | 2019-03-21 19:14 | NUR ---
HAND-OFF: Report given to AMOS Abdi. Pt. in stable condition.
--- NOTE | 2019-03-21 19:20 | NUR ---
NURSE NOTES: Received report from AMOS Watson. Patient in bed awake showing no signs of acute distress. AOx4. Respiration even and non labored on room air. no sob noted. IV noted on Left fa 22g running hep drip at 12u/kg/hr. bed in lowest position, side rails up x2, wheels locked and call button within reach. All needs attended and met. Will continue plan of care.
[2019-03-21 20:00] VITALS: BP 136/73
[2019-03-21] MEDS: Levemir Flexpen SUBQ SCH (22:35)
[2019-03-22] VITALS: BP 138/76
[2019-03-22] MEDS: Heparin 25,000u/D5W 500ml 500 ML IV SCH (00:51)
[2019-03-22 04:00] VITALS: BP 133/72
--- NOTE | 2019-03-22 04:15 | Consultation ---
DATE OF CONSULTATION: 03/21/2019 PAIN MANAGEMENT CONSULTATION CONSULTING PHYSICIAN: Geoffrey Vasquez M.D. REFERRING PHYSICIAN: Callie Kirkland M.D. PHYSICIAN MILK HAULER: Rikki Westbrook CHIEF COMPLAINT: Chest pain. HISTORY OF PRESENT ILLNESS: This is a 54-year-old male, who is being seen on the Med/Surg floor of [facility] for initial pain management consultation. The patient was admitted under the care of Dr. Kirkland due to chest pain for possible ACS, was started on morphine IV, which the patient reports has reduced his pain. PAST SURGICAL HISTORY: Appendectomy. SOCIAL HISTORY: He has a history of smoking and alcohol abuse. ALLERGIES: No known drug allergies. REVIEW OF SYSTEMS: Denies rash, fever, chills, sweating, dizziness, drowsiness, blurred vision, sore throat, or change in weight. PHYSICAL EXAMINATION: GENERAL: Alert and oriented. VITAL SIGNS: Stable. The patient is afebrile. HEENT: PERRLA. NECK: Range of motion is full in all directions. No adenopathy. LUNGS: Decreased breath sounds bilaterally. HEART: S1 and S2 regular. ABDOMEN: Soft and nontender. BACK: Range of motion is full on flexion and extension. EXTREMITIES: UE and LE full in all directions. NEUROLOGICAL: No focal deficits. ASSESSMENT AND PLAN: This is a 54-year-old male with chest pain ACS. The patient will continues current medication regimen. D/w Dr. Vasquez and he concurred. Thank you for the courtesy of this consultation. Geoffrey Vasquez M.D. NASIM Westbrook DR: TAWANA JOB#: [id number] CC: BAILEE
[2019-03-22] MEDS ORDERED: Heparin 25,000u/D5W 500ml 500 ML IV SCH ×3 (05:00→20:30)
[2019-03-22] MEDS ORDERED: Heparin 5000 units/ml inj IV SCH ×2 (05:00→20:30)
[2019-03-22] MEDS: Nateglinide 60mg tab ORAL SCH ×3 (06:38→16:56)
[2019-03-22] MEDS: NovoLOG Insulin Flexpen SUBQ SCH ×3 (06:40→16:58)
--- NOTE | 2019-03-22 06:40 | General Progress Note ---
Assessment/Plan Problem List: (1) Diabetes mellitus out of control ICD Codes: E11.65 - Type 2 diabetes mellitus with hyperglycemia SNOMED: 96919531, 221108115 (2) NSTEMI (non-ST elevated myocardial infarction) ICD Codes: I21.4 - Non-ST elevation (NSTEMI) myocardial infarction SNOMED: 36052541 (3) Chest pain ICD Codes: R07.9 - Chest pain, unspecified SNOMED: 91896167 Assessment/Plan: continue Levemir 24 units qhs continue Novolog 6 units ac tid continue NISS ac / hs continue Starlix 60 mg ac tid Subjective Allergies: Coded Allergies: No Known Allergies (Unverified , 03/20/19) All Systems: reviewed and negative except above Subjective events noted glycemic control improved Item Value Date Time Bedside Blood Glucose 206 mg/dl H 03/21/19 2235 Bedside Blood Glucose 210 mg/dl H 03/21/19 1751 Bedside Blood Glucose 224 mg/dl H 03/21/19 1227 Bedside Blood Glucose 260 mg/dl H 03/21/19 0630 Objective Last 24 Hour Vital Signs Date Time Temp Pulse Resp B/P (MAP) Pulse Ox O2 Delivery O2 Flow Rate FiO2 03/22/19 04:00 68 03/22/19 04:00 96.6 66 18 133/72 (92) 98 03/22/19 00:00 98.1 69 18 138/76 (96) 98 03/22/19 00:00 70 03/21/19 22:33 72 136/73 03/21/19 21:00 Room Air 03/21/19 20:00 74 03/21/19 20:00 97.8 72 18 136/73 (94) 98 03/21/19 17:47 127/64 03/21/19 16:00 73 03/21/19 16:00 96.8 72 18 127/64 (85) 98 03/21/19 12:00 97.3 70 18 128/73 (91) 99 03/21/19 12:00 72 03/21/19 09:01 74 133/82 03/21/19 09:01 74 133/82 03/21/19 09:00 Room Air 03/21/19 08:00 72 03/21/19 08:00 97.3 74 20 133/82 (99) 99 Intake and Output 03/21/19 03/22/19 19:00 07:00 Intake Total 280 ml Balance 280 ml Intake Oral 280 ml # Voids 2 Laboratory Tests 03/21/19 07:50: White Blood Count 9.3, Red Blood Count 3.87L, Hemoglobin 11.6L, Hematocrit 34.9L , Mean Corpuscular Volume 90, Mean Corpuscular Hemoglobin 29.9, Mean Corpuscular Hemoglobin Concent 33.2, Red Cell Distribution Width 12.7, Platelet Count 268, Mean Platelet Volume 5.8L, Neutrophils (%) (Auto) 65.4, Lymphocytes ( %) (Auto) 25.7, Monocytes (%) (Auto) 5.6, Eosinophils (%) (Auto) 2.4, Basophils (%) (Auto) 0.8, Activated Partial Thromboplast Time 75H, Sodium Level 141, Potassium Level 4.7, Chloride Level 109H, Carbon Dioxide Level 26, Anion Gap 6, Blood Urea Nitrogen 25H, Creatinine 1.3, Estimat Glomerular Filtration Rate 58.0 , Glucose Level 166#H, Hemoglobin A1c 8.7H, Uric Acid 6.0, Calcium Level 8.6, Phosphorus Level 2.5, Magnesium Level 1.7L, Iron Level 73, Total Iron Binding Capacity 209L, Percent Iron Saturation 35, Unsaturated Iron Binding 136, Ferritin 105, Total Bilirubin 0.2, Gamma Glutamyl Transpeptidase 18, Aspartate Amino Transf (AST/SGOT) 28, Alanine Aminotransferase (ALT/SGPT) 28, Alkaline Phosphatase 68, Troponin I 1.766H, C-Reactive Protein, Quantitative 0.5, Pro-B- Type Natriuretic Peptide 266H, Total Protein 6.6, Albumin 2.8L, Globulin 3.8, Albumin/Globulin Ratio 0.7L, Triglycerides Level 184H, Cholesterol Level 255H, LDL Cholesterol 195H, HDL Cholesterol 35L, Cholesterol/HDL Ratio 7.3H, Vitamin B12 Level 237, Folate 11.3, Thyroid Stimulating Hormone (TSH) 1.592 03/22/19 04:02: Activated Partial Thromboplast Time 29 Height (Feet): 5 Height (Inches): 3.00 Weight (Pounds): 170 General Appearance: no apparent distress Neck: normal alignment Cardiovascular: normal rate Respiratory/Chest: lungs clear Abdomen: normal bowel sounds Objective Current Medications Medications (Trade) Dose Ordered Sig/Marilou Route PRN Reason Start Time Stop Time Status Last Admin Dose Admin Acetaminophen (Tylenol) 650 mg Q4H PRN ORAL Mild Pain/Temp > 100.5 03/20/19 17:00 04/19/19 16:59 Amlodipine Besylate (Norvasc) 5 mg DAILY ORAL 03/21/19 09:00 04/20/19 08:59 03/21/19 09:01 Aspirin (Ecotrin) 81 mg DAILY ORAL 03/20/19 20:45 04/19/19 20:44 03/20/19 22:50 Atorvastatin Calcium (Lipitor) 80 mg BEDTIME ORAL 03/22/19 21:00 04/19/19 20:59 Dextrose (Dextrose 50%) 25 ml Q30M PRN IV Hypoglycemia 03/20/19 17:45 04/19/19 17:44 Dextrose (Dextrose 50%) 50 ml Q30M PRN IV Hypoglycemia 03/20/19 17:45 04/19/19 17:44 Docusate Sodium (Colace) 100 mg THREE TIMES A DAY ORAL 03/20/19 18:00 04/19/19 17:59 03/21/19 17:46 Fish Oil (Fish Oil) 1,000 mg BID ORAL 03/21/19 18:00 04/20/19 17:59 03/21/19 17:47 Heparin Sodium/ Dextrose 500 ml @ 24.24 mls/ hr ADJUST PER PROTOCOL IV 03/22/19 05:00 04/21/19 04:59 03/22/19 05:30 Hydralazine HCl (Apresoline) 25 mg Q4H PRN ORAL bp over 160 syst 03/20/19 17:00 04/19/19 16:59 Insulin Aspart (NovoLOG) 6 units NOVOTIAC SUBQ 03/20/19 17:45 04/19/19 17:44 03/21/19 17:51 Insulin Detemir (Levemir) 24 units BEDTIME SUBQ 03/21/19 21:00 04/19/19 20:59 03/21/19 22:35 Metoprolol Tartrate (Lopressor) 50 mg Q12HR ORAL 03/20/19 21:00 04/19/19 20:59 03/21/19 22:33 Nateglinide (Starlix) 60 mg TIAC ORAL 03/21/19 06:30 10/18/19 06:29 03/21/19 17:46 Nitroglycerin (Ntg) 1 patch Q24H TDERMAL 03/20/19 17:00 04/19/19 16:59 03/21/19 17:47 Pantoprazole (Protonix) 40 mg EVERY 12 HOURS ORAL 03/20/19 21:00 04/19/19 20:59 03/21/19 22:33 Sodium Chloride 1,000 ml @ 50 mls/hr Q20H IV 03/20/19 17:00 04/19/19 16:59 03/21/19 12:33 Long Mckeon MD Mar 22, 2019 06:40
--- NOTE | 2019-03-22 07:50 | NUR ---
HAND-OFF: Report given to AMOS Duran.
[2019-03-22 08:00] VITALS: BP 139/74
--- NOTE | 2019-03-22 08:15 | NUR ---
NURSE NOTES: received pt in the bed, awake, alert, oriented, vital signs stable, no co chest pain, no SOB, pt on Heparin drip 16u/kg/h, next PTT at 1100, tolerate diet well, bed inn low position, call light within reach.
--- NOTE | 2019-03-22 08:25 | NUR ---
CASE MANAGEMENT: SI: NSTEMI;Type 2 diabetes mellitus with hyperglycemia 97.3 71 20 139/74 97% RA BG 270 TROP (+) 1.766 IS: IV GTT HEPARIN SQ HS LEVEMIR PO DAILY NORVASC PO TIAC STARLIX PO Q12 PROTONIX PO [id number] PO QHS LIPITOR :TELE UNIT DCP: PATIENT IS FROM HOME PLAN:REFER TO [facility] FOR CARDIAC CATH
[2019-03-22] MEDS: Metoprolol Tartrate 50mg tab ORAL SCH (08:54)
[2019-03-22] MEDS: Aspirin EC 81mg tab ORAL SCH (08:54)
[2019-03-22] MEDS: Docusate 100mg cap ORAL SCH ×3 (08:54→17:34)
--- NOTE | 2019-03-22 10:54 | NUR ---
TRANSFER UPDATE: PATIENT REFER TO [facility] : WAITING FOR RESPONSE
[2019-03-22 12:00] VITALS: BP 132/70
--- NOTE | 2019-03-22 12:11 | General Progress Note ---
Assessment/Plan Problem List: (1) NSTEMI (non-ST elevated myocardial infarction) ICD Codes: I21.4 - Non-ST elevation (NSTEMI) myocardial infarction SNOMED: 55708407 (2) Chest pain ICD Codes: R07.9 - Chest pain, unspecified SNOMED: 56604058 (3) Diabetes mellitus out of control ICD Codes: E11.65 - Type 2 diabetes mellitus with hyperglycemia SNOMED: 46798420, 007550323 Status: progressing Assessment/Plan: nstmi trop was trending upward dr quiñones is novelty candy maker on the case dr quiñones started him on heparin drip awaiting studies Subjective ROS Limited/Unobtainable: Yes Allergies: Coded Allergies: No Known Allergies (Unverified , 03/20/19) Objective Last 24 Hour Vital Signs Date Time Temp Pulse Resp B/P (MAP) Pulse Ox O2 Delivery O2 Flow Rate FiO2 03/22/19 09:00 Room Air 03/22/19 08:54 71 139/74 03/22/19 08:54 71 139/74 03/22/19 08:00 97.3 71 20 139/74 (95) 97 03/22/19 08:00 66 03/22/19 04:00 68 03/22/19 04:00 96.6 66 18 133/72 (92) 98 03/22/19 00:00 98.1 69 18 138/76 (96) 98 03/22/19 00:00 70 03/21/19 22:33 72 136/73 03/21/19 21:00 Room Air 03/21/19 20:00 74 03/21/19 20:00 97.8 72 18 136/73 (94) 98 03/21/19 17:47 127/64 03/21/19 16:00 73 03/21/19 16:00 96.8 72 18 127/64 (85) 98 Intake and Output 03/21/19 03/22/19 19:00 07:00 Intake Total 280 ml 144.24 ml Balance 280 ml 144.24 ml Intake Oral 280 ml 120 ml IV Total 24.24 ml # Voids 2 Laboratory Tests 03/22/19 04:02: Activated Partial Thromboplast Time 29 03/22/19 11:30: Activated Partial Thromboplast Time [Pending] Height (Feet): 5 Height (Inches): 3.00 Weight (Pounds): 170 Neck: supple Cardiovascular: normal rate Respiratory/Chest: lungs clear Abdomen: soft Callie Kirkland MD Mar 22, 2019 12:11
--- NOTE | 2019-03-22 13:51 | Nephrology Progress Note ---
Assessment/Plan Problem List: (1) HTN (hypertension) (2) Diabetes mellitus out of control (3) NSTEMI (non-ST elevated myocardial infarction) Assessment NSTEMI- Multiple risk factors Rising Troponin I DM HTN Mild Anemia High Cholestrol borderline low B12 Plan Heparin IV beta blockers , ASA , Nitrates 2D Echo- noted Lipitor BS and BP control per orders Objective Objective Last 24 Hour Vital Signs Date Time Temp Pulse Resp B/P (MAP) Pulse Ox O2 Delivery O2 Flow Rate FiO2 03/22/19 12:00 97.8 66 18 132/70 (90) 99 03/22/19 12:00 62 03/22/19 09:00 Room Air 03/22/19 08:54 71 139/74 03/22/19 08:54 71 139/74 03/22/19 08:00 97.3 71 20 139/74 (95) 97 03/22/19 08:00 66 03/22/19 04:00 68 03/22/19 04:00 96.6 66 18 133/72 (92) 98 03/22/19 00:00 98.1 69 18 138/76 (96) 98 03/22/19 00:00 70 03/21/19 22:33 72 136/73 03/21/19 21:00 Room Air 03/21/19 20:00 74 03/21/19 20:00 97.8 72 18 136/73 (94) 98 03/21/19 17:47 127/64 03/21/19 16:00 73 03/21/19 16:00 96.8 72 18 127/64 (85) 98 Intake and Output 03/21/19 03/22/19 19:00 07:00 Intake Total 280 ml 144.24 ml Balance 280 ml 144.24 ml Intake Oral 280 ml 120 ml IV Total 24.24 ml # Voids 2 Laboratory Tests 03/22/19 04:02: Activated Partial Thromboplast Time 29 03/22/19 11:30: Activated Partial Thromboplast Time 119H Height (Feet): 5 Height (Inches): 3.00 Weight (Pounds): 170 Gurpreet Sevilla MD Mar 22, 2019 13:51
[2019-03-22 15:55] LABS: APPEARANCE,URINE CLEAR; BILIRUBIN, URINE NEGATIVE (NEGATIVE); COLOR,URINE PALE YELLOW; GLUCOSE, URINE (UA) 4+ (NEGATIVE); KETONES,URINE NEGATIVE (NEGATIVE); LEUKOCYTE ESTERASE ,URINE NEGATIVE (NEGATIVE); NITRITE,URINE NEGATIVE (NEGATIVE); PH,URINE 6 (4.5-8.0); PROTEIN,URINE 3+ (NEGATIVE); UROBILINOGEN,URINE NORMAL MG/DL (0.0-1.0)
[2019-03-22 16:00] VITALS: BP 125/78
[2019-03-22] MEDS: Nitroglycerin Patch 0.4mg TDERMAL SCH (16:57)
--- NOTE | 2019-03-22 18:46 | Cardiology Progress Note ---
Assessment/Plan Assessment/Plan 1. NSTEMI, continue atorvastatin 80, ASA and metoprolol for double product control. Require transfer to the contracted facility for left heart cath and coronary angiography and possible PCI. 2. Diabetes mellitus, continue ASA and atorvastatin. 3. History of proteinuria. Continue on lisinopril. 4. Hypertensive crisis, might be culprit for chest pain, continue amlodipine and metoprolol. Subjective Subjective Sinus rhythm at rate of 71. Objective Last 24 Hour Vital Signs Date Time Temp Pulse Resp B/P (MAP) Pulse Ox O2 Delivery O2 Flow Rate FiO2 03/22/19 16:57 125/78 03/22/19 16:00 98.0 71 18 125/78 (94) 100 03/22/19 16:00 92 03/22/19 12:00 97.8 66 18 132/70 (90) 99 03/22/19 12:00 62 03/22/19 09:00 Room Air 03/22/19 08:54 71 139/74 03/22/19 08:54 71 139/74 03/22/19 08:00 97.3 71 20 139/74 (95) 97 03/22/19 08:00 66 03/22/19 04:00 68 03/22/19 04:00 96.6 66 18 133/72 (92) 98 03/22/19 00:00 98.1 69 18 138/76 (96) 98 03/22/19 00:00 70 03/21/19 22:33 72 136/73 03/21/19 21:00 Room Air 03/21/19 20:00 74 03/21/19 20:00 97.8 72 18 136/73 (94) 98 Intake and Output 03/21/19 03/22/19 19:00 07:00 Intake Total 280 ml 144.24 ml Balance 280 ml 144.24 ml Intake Oral 280 ml 120 ml IV Total 24.24 ml # Voids 2 Laboratory Tests Test 03/22/19 04:02 03/22/19 11:30 03/22/19 15:30 Activated Partial Thromboplast Time 29 SEC (23-33) 119 SEC (23-33) H Urine Color Pale yellow Urine Appearance Clear Urine pH 6 (4.5-8.0) Urine Specific [place] 1.010 (1.005-1.035) Urine Protein 3+ (NEGATIVE) H Urine Glucose (UA) 4+ (NEGATIVE) H Urine Ketones Negative (NEGATIVE) Urine Blood 1+ (NEGATIVE) H Urine Nitrite Negative (NEGATIVE) Urine Bilirubin Negative (NEGATIVE) Urine Urobilinogen Normal MG/DL (0.0-1.0) Urine Leukocyte Esterase Negative (NEGATIVE) Urine RBC 0-2 /HPF (0 - 0) H Urine WBC 0-2 /HPF (0 - 0) Urine Squamous Epithelial Cells None /LPF (NONE/OCC) Urine Bacteria None /HPF (NONE) Objective HEENT: Atraumatic and normocephalic. Anicteric. Pupils are equal, round, and reactive to light and accommodation. Extraocular muscles intact. NECK: JVP less than 5 cm. No carotid bruit. Carotid upstroke is 2+ bilaterally. CVS: Normal S1, S2. Regular rate and rhythm. No murmurs, gallops, or rubs. PMI is at fourth intercostal space at the midclavicular. LUNGS: Clear to auscultation bilaterally. ABDOMEN: Soft, nontender, and nondistended. No hepatosplenomegaly. Positive bowel sounds. EXTREMITIES: No evidence of edema, clubbing, cyanosis. Yury Villavicencio MD Mar 22, 2019 18:46
--- NOTE | 2019-03-22 19:01 | NUR ---
HAND-OFF: Report given to REN TRINIDAD, NO DISTRESS, NO CO PAIN.
--- NOTE | 2019-03-22 19:15 | NUR ---
NURSE NOTES: Pt received from AMOS Duran, alert and oriented x4 with no acute s/s of distress noted. IV site asymptomatic and patent, L fa 22g, running to Heparin drip 13 u/kg/hr, 19.65 ml/hr, and L fa 22g running to 1/2 NS at 50. Bed in lowest position, call light and belongings within reach. Bed alarm on.
--- NOTE | 2019-03-22 19:45 | NUR ---
NURSE NOTES: Stat EKG done, sent to Dr. Villavicencio for review. No new orders given.
[2019-03-22 20:00] VITALS: BP 135/74
[2019-03-22] MEDS ORDERED: Atorvastatin 80mg tab ORAL SCH (21:00)
[2019-03-22] MEDS: Levemir Flexpen SUBQ SCH (21:08)
[2019-03-23] VITALS: BP 139/70
[2019-03-23 03:14] LABS: BASOPHILS % (AUTO) 0.8 % (0.0-2.0); EOSINOPHILS % (AUTO) 2.7 % (0.0-3.0); HEMATOCRIT 31.8 % (42.0-52.0); HEMOGLOBIN 10.8 G/DL (14.2-18.0); LYMPHOCYTES % (AUTO) 28.5 % (20.0-45.0); MEAN CORPUSCULAR VOLUME 89 FL (80-99); MONOCYTES % (AUTO) 8.5 % (1.0-10.0); NEUTROPHILS % (AUTO) 59.5 % (45.0-75.0); PLATELET COUNT 273 K/UL (150-450); RED BLOOD COUNT 3.59 M/UL (4.70-6.10); RED CELL DISTRIBUTION WIDTH 12.2 % (11.6-14.8); WHITE BLOOD COUNT 9.2 K/UL (4.8-10.8)
[2019-03-23 04:00] VITALS: BP 118/68
[2019-03-23 04:01] LABS: ALANINE AMINOTRANSFERASE 27 U/L (12-78); ALBUMIN 2.6 G/DL (3.4-5.0); ALBUMIN/GLOBULIN RATIO 0.7 (1.0-2.7); ALKALINE PHOSPHATASE 65 U/L (46-116); ANION GAP 7 mmol/L (5-15); ASPARTATE AMINO TRANSFERASE 23 U/L (15-37); BILIRUBIN,TOTAL 0.2 MG/DL (0.2-1.0); BLOOD UREA NITROGEN 27 mg/dL (7-18); CALCIUM 8.2 MG/DL (8.5-10.1); CARBON DIOXIDE 24 MMOL/L (21-32); CHLORIDE 107 MMOL/L (98-107); CHOLESTEROL 200 MG/DL (< 200); CREATININE 1.7 MG/DL (0.55-1.30); HDL CHOLESTEROL 36 MG/DL (40-60); PHOSPHORUS 3.7 MG/DL (2.5-4.9); POTASSIUM 4.9 MMOL/L (3.5-5.1); SODIUM 138 MMOL/L (136-145); TRIGLYCERIDES 187 MG/DL (30-150)
--- NOTE | 2019-03-23 04:44 | NUR ---
NURSE NOTES: Received phone call from Sapna from [facility] regarding PTT results - 122. Per protocol, will hold Heparin for 30 mins, (will restart at 0515) and adjust Heparin dose accordingly.
[2019-03-23] MEDS ORDERED: Heparin 25,000u/D5W 500ml 500 ML IV SCH (05:15)
[2019-03-23] MEDS: Nateglinide 60mg tab ORAL SCH ×2 (06:14→13:08)
[2019-03-23] MEDS: NovoLOG Insulin Flexpen SUBQ SCH (06:17)
--- NOTE | 2019-03-23 06:46 | General Progress Note ---
Assessment/Plan Problem List: (1) Diabetes mellitus out of control ICD Codes: E11.65 - Type 2 diabetes mellitus with hyperglycemia SNOMED: 09761565, 339754382 (2) NSTEMI (non-ST elevated myocardial infarction) ICD Codes: I21.4 - Non-ST elevation (NSTEMI) myocardial infarction SNOMED: 00412461 (3) Chest pain ICD Codes: R07.9 - Chest pain, unspecified SNOMED: 43134351 Status: progressing Assessment/Plan: increase Levemir to 30 units qhs increase Novolog to 10 units ac tid continue NISS ac / hs continue Starlix 60 mg ac tid Subjective Allergies: Coded Allergies: No Known Allergies (Unverified , 03/20/19) All Systems: reviewed and negative except above Subjective events noted glucose values elevated Item Value Date Time Bedside Blood Glucose 304 mg/dl H 03/23/19 0617 Bedside Blood Glucose 244 mg/dl H 03/22/19 2108 Bedside Blood Glucose 232 mg/dl H 03/22/19 1658 Bedside Blood Glucose 215 mg/dl H 03/22/19 1157 Bedside Blood Glucose 270 mg/dl H 03/22/19 0640 Objective Last 24 Hour Vital Signs Date Time Temp Pulse Resp B/P (MAP) Pulse Ox O2 Delivery O2 Flow Rate FiO2 03/23/19 04:00 98.2 70 18 118/68 (85) 100 03/23/19 04:00 82 03/23/19 00:00 70 03/23/19 00:00 98.1 65 18 139/70 (93) 99 03/22/19 21:12 75 135/74 03/22/19 21:00 Room Air 03/22/19 20:00 71 03/22/19 20:00 98.2 70 18 135/74 (94) 100 03/22/19 16:57 125/78 03/22/19 16:00 98.0 71 18 125/78 (94) 100 03/22/19 16:00 92 03/22/19 12:00 97.8 66 18 132/70 (90) 99 03/22/19 12:00 62 03/22/19 09:00 Room Air 03/22/19 08:54 71 139/74 03/22/19 08:54 71 139/74 03/22/19 08:00 97.3 71 20 139/74 (95) 97 03/22/19 08:00 66 Intake and Output 03/22/19 03/23/19 18:59 06:59 Intake Total 1044.835 ml 262.115 ml Balance 1044.835 ml 262.115 ml Intake Oral 400 ml IV Total 644.835 ml 262.115 ml Laboratory Tests 03/22/19 11:30: Activated Partial Thromboplast Time 119H 03/22/19 15:30: Urine Color Pale yellow, Urine Appearance Clear, Urine pH 6, Urine Specific [place] 1.010, Urine Protein 3+H, Urine Glucose (UA) 4+H, Urine Ketones Negative , Urine Blood 1+H, Urine Nitrite Negative, Urine Bilirubin Negative, Urine Urobilinogen Normal, Urine Leukocyte Esterase Negative, Urine RBC 0-2H, Urine WBC 0-2, Urine Squamous Epithelial Cells None, Urine Bacteria None 03/22/19 19:00: Activated Partial Thromboplast Time 57H 03/23/19 03:07: Activated Partial Thromboplast Time 122H, White Blood Count 9.2, Red Blood Count 3.59L, Hemoglobin 10.8L, Hematocrit 31.8L, Mean Corpuscular Volume 89, Mean Corpuscular Hemoglobin 30.1, Mean Corpuscular Hemoglobin Concent 34.0, Red Cell Distribution Width 12.2, Platelet Count 273, Mean Platelet Volume 5.5L, Neutrophils (%) (Auto) 59.5, Lymphocytes (%) (Auto) 28.5, Monocytes (%) (Auto) 8.5, Eosinophils (%) (Auto) 2.7, Basophils (%) (Auto) 0.8, Sodium Level 138, Potassium Level 4.9, Chloride Level 107, Carbon Dioxide Level 24, Anion Gap 7, Blood Urea Nitrogen 27H, Creatinine 1.7H, Estimat Glomerular Filtration Rate 42.5, Glucose Level 311H, Uric Acid 7.2, Calcium Level 8.2L, Phosphorus Level 3.7, Magnesium Level 2.1, Total Bilirubin 0.2, Aspartate Amino Transf (AST/SGOT ) 23, Alanine Aminotransferase (ALT/SGPT) 27, Alkaline Phosphatase 65, Troponin I 0.813H, C-Reactive Protein, Quantitative < 0.4, Pro-B-Type Natriuretic Peptide 227H, Total Protein 6.1L, Albumin 2.6L, Globulin 3.5, Albumin/Globulin Ratio 0.7L, Triglycerides Level 187H, Cholesterol Level 200, LDL Cholesterol 147H, HDL Cholesterol 36L, Cholesterol/HDL Ratio 5.6H Height (Feet): 5 Height (Inches): 3.00 Weight (Pounds): 170 General Appearance: no apparent distress Neck: normal alignment Cardiovascular: normal rate Respiratory/Chest: lungs clear Abdomen: normal bowel sounds Pelvis: normal external exam Objective Current Medications Medications (Trade) Dose Ordered Sig/Marilou Route PRN Reason Start Time Stop Time Status Last Admin Dose Admin Acetaminophen (Tylenol) 650 mg Q4H PRN ORAL Mild Pain/Temp > 100.5 03/20/19 17:00 04/19/19 16:59 Amlodipine Besylate (Norvasc) 5 mg DAILY ORAL 03/21/19 09:00 04/20/19 08:59 03/22/19 08:54 Aspirin (Ecotrin) 81 mg DAILY ORAL 03/20/19 20:45 04/19/19 20:44 03/22/19 08:54 Atorvastatin Calcium (Lipitor) 80 mg BEDTIME ORAL 03/22/19 21:00 04/19/19 20:59 03/22/19 21:13 Dextrose (Dextrose 50%) 25 ml Q30M PRN IV Hypoglycemia 03/20/19 17:45 04/19/19 17:44 Dextrose (Dextrose 50%) 50 ml Q30M PRN IV Hypoglycemia 03/20/19 17:45 04/19/19 17:44 Docusate Sodium (Colace) 100 mg THREE TIMES A DAY ORAL 03/20/19 18:00 04/19/19 17:59 03/22/19 17:34 Fish Oil (Fish Oil) 1,000 mg BID ORAL 03/21/19 18:00 04/20/19 17:59 03/22/19 17:34 Heparin Sodium/ Dextrose 500 ml @ 18.18 mls/ hr ADJUST PER PROTOCOL IV 03/23/19 05:15 04/21/19 20:29 03/23/19 05:33 Hydralazine HCl (Apresoline) 25 mg Q4H PRN ORAL bp over 160 syst 03/20/19 17:00 04/19/19 16:59 Insulin Aspart (NovoLOG) 6 units NOVOTIAC SUBQ 03/20/19 17:45 04/19/19 17:44 03/23/19 06:17 Insulin Detemir (Levemir) 24 units BEDTIME SUBQ 03/21/19 21:00 04/19/19 20:59 03/22/19 21:08 Metoprolol Tartrate (Lopressor) 100 mg Q12HR ORAL 03/22/19 21:00 04/21/19 20:59 03/22/19 21:12 Nateglinide (Starlix) 60 mg TIAC ORAL 03/21/19 06:30 04/20/19 06:29 03/23/19 06:14 Nitroglycerin (Ntg) 1 patch Q24H TDERMAL 03/20/19 17:00 04/19/19 16:59 03/22/19 16:57 Pantoprazole (Protonix) 40 mg EVERY 12 HOURS ORAL 03/20/19 21:00 04/19/19 20:59 03/22/19 21:12 Sodium Chloride 1,000 ml @ 50 mls/hr Q20H IV 03/20/19 17:00 04/19/19 16:59 03/23/19 05:33 Long Mckeon MD Mar 23, 2019 06:46
--- NOTE | 2019-03-23 07:30 | NUR ---
HAND-OFF: Report given to AMOS Chow. Plan of care endorsed.
--- NOTE | 2019-03-23 07:45 | NUR ---
NURSE NOTES: pt sitting in bed having breakfast. Pt is on registered nurse cardiac telemetry no signs of cardiac or respiratory distress at this time. Pt is on Heparin drip will draw new labs @ 1130. Iv sites patent dry and intact. Pt in room air. Bed is locked and in lowest position, call light is within reach. Will continue to monitor pt and follow plans of care.
[2019-03-23 08:00] VITALS: BP 132/69
--- NOTE | 2019-03-23 09:40 | NUR ---
NURSE NOTES: Patient is noted agitated, asking need information on impending cardiac clearance and if unable to get it will leave hospital without signing Against Medical Advice form. Noted. This charge nurse called and left message for Dr. Kirkland and Dr. Villavicencio of situation. Noted. will continue to monitor patient.
[2019-03-23] MEDS: Aspirin EC 81mg tab ORAL SCH (09:44)
[2019-03-23] MEDS: Docusate 100mg cap ORAL SCH ×2 (09:44→13:00)
--- NOTE | 2019-03-23 10:29 | NUR ---
NURSE NOTES: Called Dr. Villavicencio and spoke over via telephone and informed MD of situation that patient will leave hospital because pt needs cardiac cath procedure needed to be explained. Dr. Villavicencio acknowledged and per Dr. Villavicencio unable to speak with patient at this time, will call back as soon as able. Spoke with patient and informed patient that Dr. Villavicencio will call back and explain cardiac cath procedure. Patient acknowledged. Noted. Will continue to monitor patient.
--- NOTE | 2019-03-23 11:11 | Nephrology Progress Note ---
Assessment/Plan Problem List: (1) HTN (hypertension) (2) Diabetes mellitus out of control (3) NSTEMI (non-ST elevated myocardial infarction) (4) Acute renal failure Assessment NSTEMI- Multiple risk factors Rising Troponin I DM HTN Mild Anemia High Cholestrol borderline low B12 Plan Heparin IV beta blockers , ASA , Nitrates 2D Echo- noted Lipitor BS and BP control per orders Subjective ROS Limited/Unobtainable: No Objective Objective Last 24 Hour Vital Signs Date Time Temp Pulse Resp B/P (MAP) Pulse Ox O2 Delivery O2 Flow Rate FiO2 03/23/19 09:45 64 132/69 03/23/19 09:44 64 132/69 03/23/19 08:00 98.0 64 18 132/69 (90) 98 03/23/19 04:00 98.2 70 18 118/68 (85) 100 03/23/19 04:00 82 03/23/19 00:00 70 03/23/19 00:00 98.1 65 18 139/70 (93) 99 03/22/19 21:12 75 135/74 03/22/19 21:00 Room Air 03/22/19 20:00 71 03/22/19 20:00 98.2 70 18 135/74 (94) 100 03/22/19 16:57 125/78 03/22/19 16:00 98.0 71 18 125/78 (94) 100 03/22/19 16:00 92 03/22/19 12:00 97.8 66 18 132/70 (90) 99 03/22/19 12:00 62 Intake and Output 03/22/19 03/23/19 19:00 07:00 Intake Total 970.290 ml 532.420 ml Balance 970.290 ml 532.420 ml Intake Oral 280 ml 340 ml IV Total 690.290 ml 192.420 ml # Voids 2 Laboratory Tests 03/22/19 11:30: Activated Partial Thromboplast Time 119H 03/22/19 15:30: Urine Color Pale yellow, Urine Appearance Clear, Urine pH 6, Urine Specific [place] 1.010, Urine Protein 3+H, Urine Glucose (UA) 4+H, Urine Ketones Negative , Urine Blood 1+H, Urine Nitrite Negative, Urine Bilirubin Negative, Urine Urobilinogen Normal, Urine Leukocyte Esterase Negative, Urine RBC 0-2H, Urine WBC 0-2, Urine Squamous Epithelial Cells None, Urine Bacteria None 03/22/19 19:00: Activated Partial Thromboplast Time 57H 03/23/19 03:07: Activated Partial Thromboplast Time 122H, White Blood Count 9.2, Red Blood Count 3.59L, Hemoglobin 10.8L, Hematocrit 31.8L, Mean Corpuscular Volume 89, Mean Corpuscular Hemoglobin 30.1, Mean Corpuscular Hemoglobin Concent 34.0, Red Cell Distribution Width 12.2, Platelet Count 273, Mean Platelet Volume 5.5L, Neutrophils (%) (Auto) 59.5, Lymphocytes (%) (Auto) 28.5, Monocytes (%) (Auto) 8.5, Eosinophils (%) (Auto) 2.7, Basophils (%) (Auto) 0.8, Sodium Level 138, Potassium Level 4.9, Chloride Level 107, Carbon Dioxide Level 24, Anion Gap 7, Blood Urea Nitrogen 27H, Creatinine 1.7H, Estimat Glomerular Filtration Rate 42.5, Glucose Level 311H, Uric Acid 7.2, Calcium Level 8.2L, Phosphorus Level 3.7, Magnesium Level 2.1, Total Bilirubin 0.2, Aspartate Amino Transf (AST/SGOT ) 23, Alanine Aminotransferase (ALT/SGPT) 27, Alkaline Phosphatase 65, Troponin I 0.813H, C-Reactive Protein, Quantitative < 0.4, Pro-B-Type Natriuretic Peptide 227H, Total Protein 6.1L, Albumin 2.6L, Globulin 3.5, Albumin/Globulin Ratio 0.7L, Triglycerides Level 187H, Cholesterol Level 200, LDL Cholesterol 147H, HDL Cholesterol 36L, Cholesterol/HDL Ratio 5.6H Height (Feet): 5 Height (Inches): 3.00 Weight (Pounds): 170 General Appearance: no apparent distress Objective no change Gurpreet Sevilla MD Mar 23, 2019 11:11
[2019-03-23] MEDS ORDERED: NovoLOG Insulin Flexpen SUBQ SCH (11:50)
[2019-03-23 12:00] VITALS: BP 159/78
--- NOTE | 2019-03-23 12:07 | NUR ---
CASE MANAGEMENT: REVIEW 03/23/19 SI: NSTEMI; DM OOC 98.0 64 18 132/69 98% RA BG 311; TROP (+) 0.813 IS: IV GTT HEPARIN LEVEMIR SQ HS NOVOLOG SQ STARLIX PO TIAC IVF @75/HR FLOMAX PO HS NITRO TD Q24 HYDRALAZINE PO Q4 NORVASC PO QD PROTONIX Q12 LOPRESSOR PO Q12 LIPITOR PO HS :TELE UNIT DCP: PATIENT IS FROM HOME PLAN: PATIENT HAS BEEN REFERRED TO [facility] FOR CARDIAC CATH... BED AVAILABLE PENDING
--- NOTE | 2019-03-23 12:30 | NUR ---
NURSE NOTES: Patient spoke with Dr. Villavicencio via telephone. This nurse observed conversation room. Patient refused cardiac catheter, states will leave hospital against medical advice. Patient refused to sign Against Medical Advice form. AMOS Chan. is second witness. Dr. Kirkland and Dr. Villavicencio aware. Nurse supervisor cook room aware.
--- NOTE | 2019-03-23 12:37 | NUR ---
TRANSFER UPDATE PATIENT HAS BEEN REFEREED TO [facility] #[id number] CALL[facility] SPOKE TO [place]: NO BEDS AVAILABLE AT THIS TIME [facility]: [phone]
--- NOTE | 2019-03-23 13:30 | NUR ---
NURSE NOTES: pt spoke with Doctor Villavicencio; doctor explained Mr. Lopez his condition, studies to follow and risk of leaving AMA. Still after speaking to doctor pt still wants to leave AMA. Doctor West and Saud are aware of situation. Pt is Alert and oriented X4 and is aware of all risk of leaving AMA.
--- NOTE | 2019-03-23 14:03 | NUR ---
Pt. wants to leave AMA and refusing to sign AMA form. Pt is concern because he does not have health insurance coverage. Pt states he is feeling better does not have any shortness of breath chest pain. "I think my pain is coming from all the stress I'm undergoing at home, my dad past away, my aunt past away recently. My mom needs my help she can't see at night". Charge nurse Lennox and Claudine/AMOS have explained to pt. that he needs to have further studies and this is the reason why he is here. 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 Pt was on Heparin drip and has been DC around 1105 because pt was threatening to pull out IV. IV was DC, skin not swollen or bleeding. quality assurance monitor body was taken off. Pt. has no signs of cardiac or respiratory distress at this time. Pt. education was given in regards to Heparin blood thinner. He knows he is a high risk for bleed and will not practice any sports, shave or consume alcohol. He also knows to seek medical attention in case of bleeding. Pt advised to follow up with doctor as soon as possible and to continue taking home meds. He states he will apply for medical and will follow up with PCP as soon as he is able to get health insurance. Pt is getting picked up by niece.
[2019-03-23] MEDS ORDERED: 1/2 NS 1000ml IV ONE (14:19)
--- NOTE | 2019-03-23 14:20 | NUR ---
NURSE NOTES: Pt left the hospital via private car. Both IVs were discontinued no signs of bleeding. equipment monitor phototypesetting was taken off. Pt was given instructions because he is a high risk for bleeding pt understands that and will not practice any kind of dangerous activities. He will make a follow up appt. as soon as he has insurance. He will continue home medications.
--- NOTE | 2019-03-23 14:20 | NUR ---
NURSE NOTES: Patient left hospital against medical advice. Refused to sign AMA form, AMOS Chan second. IV access removed, no active bleeding noted. Heart monitor removed and returned to monitor car operator. ID band removed and placed in shredder. Noted.
--- NOTE | 2019-03-23 17:06 | Cardiology Progress Note ---
Assessment/Plan Assessment/Plan 1. NSTEMI with no wall motion abnormalities, LVEF at 65%, continue atorvastatin 80, ASA and metoprolol for double product control. Require transfer to the contracted facility for left heart cath and coronary angiography and possible PCI. Talked to the patient on the phone and explained to him that he should not leave the hospital against medical advice, the risk of such action may include another heart attack, fatal arrhythmias and and . He states that he cannot wait any longer and due to josh fact that he does not have medical insurance, he should leave the hospital and sign himself in to another hospital that has [facility] facility. He mentioned that he would not sign the AMA sheet. 2. Diabetes mellitus, continue ASA and atorvastatin. 3. History of proteinuria. Continue on lisinopril. 4. Hypertension, stage II, continue amlodipine and metoprolol. Subjective Subjective Sinus rhythm at rate of 60. Objective Last 24 Hour Vital Signs Date Time Temp Pulse Resp B/P (MAP) Pulse Ox O2 Delivery O2 Flow Rate FiO2 03/23/19 12:00 98.1 60 18 159/78 (105) 99 03/23/19 12:00 65 03/23/19 09:45 64 132/69 03/23/19 09:44 64 132/69 03/23/19 09:00 Room Air 03/23/19 08:00 66 03/23/19 08:00 98.0 64 18 132/69 (90) 98 03/23/19 04:00 98.2 70 18 118/68 (85) 100 03/23/19 04:00 82 03/23/19 00:00 70 03/23/19 00:00 98.1 65 18 139/70 (93) 99 03/22/19 21:12 75 135/74 03/22/19 21:00 Room Air 03/22/19 20:00 71 03/22/19 20:00 98.2 70 18 135/74 (94) 100 Intake and Output 03/22/19 03/23/19 19:00 07:00 Intake Total 970.290 ml 532.420 ml Balance 970.290 ml 532.420 ml Intake Oral 280 ml 340 ml IV Total 690.290 ml 192.420 ml # Voids 2 2D Echo: LVEF 65%, Mild MR, RVSP 24 mmHg Laboratory Tests Test 03/22/19 19:00 03/23/19 03:07 Activated Partial Thromboplast Time 57 SEC (23-33) H 122 SEC (23-33) H White Blood Count 9.2 K/UL (4.8-10.8) Red Blood Count 3.59 M/UL (4.70-6.10) L Hemoglobin 10.8 G/DL (14.2-18.0) L Hematocrit 31.8 % (42.0-52.0) L Mean Corpuscular Volume 89 FL (80-99) Mean Corpuscular Hemoglobin 30.1 PG (27.0-31.0) Mean Corpuscular Hemoglobin Concent 34.0 G/DL (32.0-36.0) Red Cell Distribution Width 12.2 % (11.6-14.8) Platelet Count 273 K/UL (150-450) Mean Platelet Volume 5.5 FL (6.5-10.1) L Neutrophils (%) (Auto) 59.5 % (45.0-75.0) Lymphocytes (%) (Auto) 28.5 % (20.0-45.0) Monocytes (%) (Auto) 8.5 % (1.0-10.0) Eosinophils (%) (Auto) 2.7 % (0.0-3.0) Basophils (%) (Auto) 0.8 % (0.0-2.0) Sodium Level 138 MMOL/L (136-145) Potassium Level 4.9 MMOL/L (3.5-5.1) Chloride Level 107 MMOL/L (98-107) Carbon Dioxide Level 24 MMOL/L (21-32) Anion Gap 7 mmol/L (5-15) Blood Urea Nitrogen 27 mg/dL (7-18) H Creatinine 1.7 MG/DL (0.55-1.30) H Estimat Glomerular Filtration Rate 42.5 mL/min (>60) Glucose Level 311 MG/DL (74-106) H Uric Acid 7.2 MG/DL (2.6-7.2) Calcium Level 8.2 MG/DL (8.5-10.1) L Phosphorus Level 3.7 MG/DL (2.5-4.9) Magnesium Level 2.1 MG/DL (1.8-2.4) Total Bilirubin 0.2 MG/DL (0.2-1.0) Aspartate Amino Transf (AST/SGOT) 23 U/L (15-37) Alanine Aminotransferase (ALT/SGPT) 27 U/L (12-78) Alkaline Phosphatase 65 U/L (46-116) Troponin I 0.813 ng/mL (0.000-0.056) C-Reactive Protein, Quantitative < 0.4 mg/dL (0.00-0.90) Pro-B-Type Natriuretic Peptide 227 pg/mL (0-125) H Total Protein 6.1 G/DL (6.4-8.2) L Albumin 2.6 G/DL (3.4-5.0) L Globulin 3.5 g/dL Albumin/Globulin Ratio 0.7 (1.0-2.7) L Triglycerides Level 187 MG/DL (30-150) H Cholesterol Level 200 MG/DL (< 200) LDL Cholesterol 147 mg/dL (<100) H HDL Cholesterol 36 MG/DL (40-60) L Cholesterol/HDL Ratio 5.6 (3.3-4.4) H Objective HEENT: Atraumatic and normocephalic. Anicteric. Pupils are equal, round, and reactive to light and accommodation. Extraocular muscles intact. NECK: JVP less than 5 cm. No carotid bruit. Carotid upstroke is 2+ bilaterally. CVS: Normal S1, S2. Regular rate and rhythm. No murmurs, gallops, or rubs. PMI is at fourth intercostal space at the midclavicular. LUNGS: Clear to auscultation bilaterally. ABDOMEN: Soft, nontender, and nondistended. No hepatosplenomegaly. Positive bowel sounds. EXTREMITIES: No evidence of edema, clubbing, cyanosis. Yury Villavicencio MD Mar 23, 2019 17:06
[2019-03-23] MEDS ORDERED: Tamsulosin 0.4mg cap ORAL SCH (21:00)
[2019-03-23] MEDS ORDERED: Levemir Flexpen SUBQ SCH (21:00)
--- NOTE | 2019-03-25 10:09 | Discharge Summary ---
Discharge Summary Discharge Summary _ DATE OF ADMISSION: 03/20/2019 DATE OF DISCHARGE: 03/23/2019 DISCHARGED BY: [] Dr. Callie Flynn CONSULTANTS: Dr. 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 Pain was radiating to the left arm. He also had chest pressure. He was brought in to ED via EMS. He received aspirin and nitroglycerin prior to arrival. He denied any recent illness. Denied cough or congestion. He stopped smoking 5 days ago. He admitted to vaping. He denied fever or chills. He has been under a lot of stress. Denies any trauma. He has medical history significant for diabetes mellitus and high blood pressure. Upon evaluation at the ED, blood pressure was elevated to 191/103. Blood work did not show any leukocytosis. Hemoglobin and hematocrit were stable. Potassium was elevated to 5.3. Glucose 287. Troponin was negative. Urine toxicology was negative urinalysis showed 4+ protein, 4+ glucose, negative leukocyte esterase. EKG showed normal sinus rhythm with no acute changes. Chest x-ray with no acute disease. He was then admitted for evaluation of non- ST elevated IL. Cardiology was consulted. Enzymes were monitored. Patient has risk tests including diabetes mellitus, hypertension and tobacco abuse. He was given antiplatelet therapy. He was started on a atorvastatin 40 mg nightly. Patient had elevated blood pressure. He was given amlodipine and beta-tray. He was continued on lisinopril. Lipid panel showed cholesterol of 255, LDL 195, HDL 35. Blood glucose was monitored. Patient was on metformin and glipizide as outpatient. He was started on Levemir 24units, NovoLog 6 units each meal and Starlix 60 mg 3 times daily. He was continued on metformin. Hemoglobin A1c 8.7 Troponin levels were trending. Troponin peaked at 3.4. He was started on heparin drip. Atorvastatin was increased to 80 mg nightly. Echo showed LVEF at 65%. Patient would need to be transferred to a contracted facility for left heart catheterization coronary angiography with possible PCI. Cardiac enzymes down trended. Patient was concerned about not having health insurance coverage. Patient left AGAINST MEDICAL ADVICE. FINAL DIAGNOSES: Non-ST elevated IL with no wall motion abnormalities Diabetes mellitus with proteinuria, [id number] Type II hypertension Borderline low B12 high cholesterol Mild anemia DISPOSITION: Patient left AGAINST MEDICAL ADVICE. I have been assigned to complete a discharge summary on this account, I was not involved with the patient's management.--CHING Castaneda Jacqueline Robles NP Mar 25, 2019 10:09
--- NOTE | 2019-03-25 17:11 | Cardiology Report ---
APPROVED REPORT EKG Measurement Heart [id number] Normal sinus rhythm Possible Anterior infarct, age undetermined Abnormal ECG
--- NOTE | 2019-03-25 17:38 | Cardiology Report ---
APPROVED REPORT EKG Measurement Heart [id number] Normal sinus rhythm Possible Lateral infarct, age undetermined Abnormal ECG
== END 2019-03-23 14:20 | disposition left against medical advice (07) | DRG 281 ==
LOC: EDBD 09:49 → EMR 10:43 → 2E 12:29 → EDBEDREQ 12:38
DX: I21.4 Non-ST elevation (NSTEMI) myocardial infarction (principal); I16.9 Hypertensive crisis, unspecified; E11.65 Type 2 diabetes mellitus with hyperglycemia; D64.9 Anemia, unspecified; R80.9 Proteinuria, unspecified; E78.00 Pure hypercholesterolemia, unspecified; Z79.84 Long term (current) use of oral hypoglycemic drugs; F17.200 Nicotine dependence, unspecified, uncomplicated
CPT/HCPCS: 36415; 71045; 80053; 80061; 80307; 81001; 81003; 82550; 82553; 82607; 82728; 82746; 82962; 82977; 83036; 83540; 83550; 83690; 83735; 83880; 84100; 84443; 84484; 84550; 85025; 85730; 86140; 93005; 93306; 96361; 96372; 96374; 99285; J1815; S5561